=== PATIENT | female | born 1970 | race Caucasian/White ===

== ENCOUNTER 2017-06-13 17:22 | Emergency (ER) | payer BC ==
[~2017-06-13] VITALS: Ht 165.1 cm; Wt 65.8 kg
[~2017-06-13 17:22] MED LIST: HORMONE REPLACEMENT; KEFLEX500 MG PO; SEROQUEL 25 MG25 M1 PO; TRIAMCINOLONE A80 G2 TOP
[2017-06-13] MEDS ORDERED: UNICOMPLEX M TA1 TA1 PO (17:32)
[2017-06-13 17:57] LABS: HEMATOCRIT 38.6 % (37.0-47.0); MCH 29.7 pg (26.0-34.0); MCHC 33.8 g/dL (28.0-37.0); MPV 7.2 fl. (7.2-11.1); RBC 4.38 mil/uL (4.20-5.00); RDW-CV 12.7 % (10.5-14.5); WBC 8.5 thou/uL (4.0-11.0)
[2017-06-13 18:04] LABS: ANION GAP 6 mmol/L (7-16); BUN 7 mg/dL (7-18); CALCIUM 8.8 mg/dL (8.5-10.1); CHLORIDE 104 mmol/L (98-107); CO2 31 mmol/L (21-32); CREATININE 0.8 mg/dL (0.6-1.3); GLUCOSE 94 mg/dL (70-99); POTASSIUM 3.8 mmol/L (3.5-5.1); SODIUM 141 mmol/L (136-145)
[2017-06-13] MEDS ORDERED: MEDROLDOSEPACK PO (18:08)
[2017-06-13] MEDS ORDERED: IBUPROFEN 600600 M1 PO (18:08)
[2017-06-13] MEDS ORDERED: NORCO 5-325 TA1 EACH PO (18:08)
[2017-06-13 18:12] LABS: TROPONIN-I LEVEL <0.06 ng/mL (<0.06)
[2017-06-13 18:50] VITALS: BP 136/75
--- NOTE | 2017-06-14 10:20 | EKG ---
[place] [address] ELECTROCARDIOGRAM REPORT Name: HERRERA LALA Room: [facility]#: [id number] Admission: 06/13/17 Attend Phys: Discharge: 06/13/17 Date of : 66 Report #: [id number] THIS REPORT FOR: //name// [facility] ED Test Date: 2017-06-13 Test Time: 18:07:07 Pat Name: HERRERA MCFADDENNER Department: Room: Gender: F [employer]: MOE : 1970 Requested By: Zach Jackman Order Number: [id number] MD: Christopher Crowell Measurements Intervals [place] Rate: 72 P: 41 IN: 132 QRS: 59 QRSD: 82 T: 57 QT: 398 QTc: 436 Interpretive Statements Sinus rhythm Probable left atrial enlargement No previous ECG available for comparison Electronically Signed On 06-14-2017 10:19:56 [employer] by Christopher Crowell [email or web address] <ELECTRONICALLY SIGNED> By: Christopher Crowell MD, [facility] 06/14/17 1019 1807 1807 Christopher Crowell MD, FACC /EPI
== END 2017-06-13 18:50 | disposition home or self-care (01) ==
LOC: M.ERS 17:22
PROVIDERS: Emergency Medicine Emergency Medical Services
DX: S46.912A Strain of unspecified muscle, fascia and tendon at shoulder and upper arm level, left arm, initial encounter (principal); M54.10 Radiculopathy, site unspecified; X58.XXXA Exposure to other specified factors, initial encounter; Y93.89 Activity, other specified; Y92.89 Other specified places as the place of occurrence of the external cause; Y99.8 Other external cause status